=== PATIENT | male | born 1955 | race Caucasian/White ===

== ENCOUNTER 2017-08-05 15:51 | Emergency (ER) | payer MEDICAID ==
[~2017-08-05] VITALS: Ht 170.2 cm; Wt 68.9 kg
[2017-08-05 15:53] VITALS: BP 92/60
[2017-08-05] MEDS ORDERED: SODIUM CHLORIDE 0.9% 1,000ML IVBOLUS ONE (16:00)
[2017-08-05] MEDS ORDERED: SODIUM CHLORIDE 0.9% 1,000 ML IV ONE (16:00)
[2017-08-05 16:25] LABS: HEMATOCRIT 39.2 % (39.2-51.8); HEMOGLOBIN 13.2 g/dL (13.7-18.0); WHITE BLOOD COUNT 13.3 x10^3/uL (3.4-10)
[2017-08-05 16:36] LABS: BLOOD UREA NITROGEN 16 mg/dL (7-18)
[2017-08-05] MEDS ORDERED: HYDROcodone/APAP 5/325 TABLET ONE (17:23)
[2017-08-05] MEDS ORDERED: HYDROcodone/APAP 5/325 TABLET PO ONE (17:30)
== END 2017-08-05 17:59 | disposition home or self-care (01) ==
LOC: ED 17:53
DX: J20.8 Acute bronchitis due to other specified organisms (principal); Z59.0 Homelessness
CPT/HCPCS: 36415; 71020; 80048; 82040; 85025; 93005; 99285; J7512

== ENCOUNTER 2017-09-15 06:50 | Emergency (ER) | payer MEDICAID ==
[~2017-09-15] VITALS: Ht 170.2 cm; Wt 69.7 kg
[2017-09-15 06:52] VITALS: BP 131/86
[2017-09-15] MEDS ORDERED: HYDROcodone/APAP 5/325 TABLET ONE (07:16)
[2017-09-15] MEDS ORDERED: LIDOCAINE 1%, 20ML ONE ×2 (07:16→07:23)
[2017-09-15] MEDS ORDERED: LIDOCAINE 1%, 20ML SQ ONE (07:30)
[2017-09-15] MEDS ORDERED: HYDROcodone/APAP 5/325 TABLET PO ONE (07:30)
== END 2017-09-15 08:01 | disposition home or self-care (01) ==
LOC: ED 07:14
DX: L02.01 Cutaneous abscess of face (principal); F17.210 Nicotine dependence, cigarettes, uncomplicated
CPT/HCPCS: 10060; 99283

== ENCOUNTER 2017-09-18 05:02 | Emergency (ER) | payer MEDICAID ==
[~2017-09-18] VITALS: Ht 170.2 cm; Wt 65.2 kg
[2017-09-18 05:05] VITALS: BP 139/88
[2017-09-18] MEDS ORDERED: IBUPROFEN 200 MG TABLET PO ONE (06:00)
[2017-09-18] MEDS ORDERED: BACITRACIN ZINC OINT 500U/GM, 0.9 GM ONE (06:22)
[2017-09-18] MEDS ORDERED: IBUPROFEN 200 MG TABLET ONE (06:22)
== END 2017-09-18 07:19 | disposition home or self-care (01) ==
LOC: ED 06:19
DX: L02.01 Cutaneous abscess of face (principal); F17.200 Nicotine dependence, unspecified, uncomplicated
CPT/HCPCS: 99282; 99283

== ENCOUNTER 2017-12-01 13:49 | Emergency (ER) | payer MEDICAID ==
[~2017-12-01] VITALS: Ht 177.8 cm; Wt 68.2 kg
[2017-12-01 14:11] VITALS: BP 124/81
[2017-12-01 14:58] LABS: RAPID INFLUENZA A Negative (Negative); RAPID INFLUENZA B Negative (Negative)
== END 2017-12-01 15:39 | disposition home or self-care (01) ==
LOC: ED 15:36
DX: S86.811A Strain of other muscle(s) and tendon(s) at lower leg level, right leg, initial encounter (principal); B34.9 Viral infection, unspecified; W01.0XXA Fall on same level from slipping, tripping and stumbling without subsequent striking against object, initial encounter; Y93.89 Activity, other specified; Y92.89 Other specified places as the place of occurrence of the external cause; Y99.8 Other external cause status
CPT/HCPCS: 71046; 87400; 99285